=== PATIENT | male | born 1975 | race Caucasian/White ===

== ENCOUNTER 2023-11-26 14:19 | Emergency (ER) | payer SELFPAY ==
--- NOTE | 2023-11-26 16:33 | ED.SKININJ ---
HPI-Injury
General
Chief Complaint: Bite
Source: patient
Exam Limitations: none
Time Seen by Provider: 11/26/23 15:37
Nursing documentation reviewed up to this point in time: agreed with
Travel History
Have you had any contact with someone who has COVID-19?: No
Do you have any symptoms of coronavirus? Fever > 100 degrees, chills, cough, shortness of breath, sore throat, loss of taste or smell, muscle aches, or headache?: No
History of Present Illness-Injury
Is this injury a work related problem?: Yes
Is pt an associate of [facility]?: No
Initial Injury comments:
Patient states he felt something sting his neck. Did not see insect. COmplains of pain and itching to right parietal scalp behind right ear, left shoulder. Incident occurred just PT
Past History
Past History
ED Past Medical History: Other (Crohn's disease)
ED Past Surgical History: Other (Bowel resection)
Social History
Tobacco: Non-smoker
Alcohol: None
Drug: None
Personal:
Living: with family
Employment: Employed
Review of Systems
Review of Systems
Allergies reviewed?: Yes
All Other Systems: ROS reviewed and negative except as documented in HPI and ROS
Constitutional: Reports no symptoms
EENT: Reports no symptoms
Respiratory: Reports no symptoms
Cardiac: Reports no symptoms
ABD/GI: Reports no symptoms
: Reports no symptoms
Musculoskeletal: Reports no symptoms
Skin: Reports other (insect bite left parietal scalp behind left ear and right shoulder)
Neurological: Reports no symptoms
Psychiatric: Reports no symptoms
Skin Exam
Bite
Right Shoulder:
Type: insect/spider
Surrounding area around bite has: area of erythema/swelling
Distal skin color and temperature: normal-warm & good color
Normal distal neurovascular exam: Yes
Left Parietal:
Type: insect/spider
Surrounding area around bite has: area of erythema/swelling
Distal skin color and temperature: normal-warm & good color
Normal distal neurovascular exam: Yes
Phy Exam
General Physical Exam
General Presentation: well appearing and no apparent distress
General age: appears stated age
General Skin: warm and dry
General Habitus: normal
General Mental: alert
Cardiovascular Exam
Cardiovascular Exam: regular rate/rhythm and no edema
Pulmonary Exam
Pulmonary Exam: lungs clear and no respiratory distress
Musculoskeletal Exam
Musculoskeletal Exam: full ROM and neuro vasc intact
Skin Exam
Skin Exam: normal color, warm/dry and no rash
Psychiatric Exam
Psychiatric Exam: normal mood/affect
Course
Orders/Labs/Results
Orders:
Orders
11/26/23 16:31
Diphenhydramine [Benadryl] 50 mg PO NOW STA
Vital Signs
Initial and Last Documented VS:
Initial Vital Signs
Temp
98.0 F
11/26/23 14:33
Last Documented Vital Signs
Temp
98.5 F
11/26/23 16:42
*Critical Care Note
Total Time (30-74mins, 75-104mins- exclusive of procedures): Not Applicable
ED Attending Note
-
Portions of this chart may have been created with voice recognition software.� Occasional wrong word or��sound alike� substitutions may have occurred due to the inherent limitations of voice recognition software.
Discharge Plan
Departure
Patient Disposition: Home (Routine Discharge)
Date of Disposition: 11/26/23
Time of Disposition: 16:33
Patient with high blood pressure during this ER visit?: No
Condition: Good
Covid-19: Not Applicable
Discharge Problem:
Insect bite
Instructions: Diphenhydramine (Systemic), Insect Bites and Stings (DC), Using Cold for Pain
Prescriptions:
No Action
aspirin 81 mg Tablet,Delayed Release (Dr/Ec)
81 mg PO DAILY
budesonide 3 mg capsule,delayed,extend.release
3 mg PO DAILY Qty: 30 0RF
mesalamine 800 mg tablet,delayed release (DR/EC)
1,600 mg PO TID Qty: 90 0RF
acetaminophen [Pain Relief ES (acetaminophen)] 500 mg Tablet
1,000 mg PO TID Qty: 30 0RF
oxycodone 5 mg Tablet
5 mg PO Q4HPRN PRN (Reason: mod sev pain) 15 Days Qty: 15 0RF
prednisone 10 mg Tablet
See Rx Instructions .ROUTE .COMPLEX Qty: 20 0RF
Rx Instructions:
Take By Mouth:
40 mg daily x2 days, 30 mg daily x2 days,
20 mg daily x2 days, 10 mg daily x2 days.
doxycycline hyclate 100 mg capsule
100 mg PO BID Qty: 14 0RF
Referrals:
NONE,* [Family Provider] -
Activity Restrictions/Additional Instructions:
Return to the emergency department for any difficulty breathing or swallowing. Continue Benadryl 25-50mg every 4-6 hours as needed for itching.
Interventions
Interventions:
*Risk Screen - Suicide Last Done: 11/26/23 16:26
*General Assessment Last Done: 11/26/23 16:26
*Neglect/Abuse Screening Last Done: 11/26/23 16:26
*ED COVID-19 Vaccine History Last Done: 11/26/23 14:33
*Nursing Disposition Last Done: 11/26/23 16:42
ED-Skin Assessment Last Done: 11/26/23 16:26
Discharge Date and Time
Discharge Date/Time: 11/26/23 16:43
[2023-11-26] MEDS: BENADRYL 50 MG PO (16:40)
== END 2023-11-26 16:43 | disposition home or self-care (01) ==
LOC: EMR 14:19
PROVIDERS: EMERGENCY PHYSICIAN Emergency Medicine
DX: H92.01 Otalgia, right ear (principal); M25.512 Pain in left shoulder; R22.31 Localized swelling, mass and lump, right upper limb; L29.9 Pruritus, unspecified; W57.XXXA Bitten or stung by nonvenomous insect and other nonvenomous arthropods, initial encounter; Y93.89 Activity, other specified; Y92.89 Other specified places as the place of occurrence of the external cause; Y99.0 Civilian activity done for income or pay; K50.90 Crohn's disease, unspecified, without complications; Z79.82 Long term (current) use of aspirin; Z98.0 Intestinal bypass and anastomosis status; Z88.1 Allergy status to other antibiotic agents
CPT/HCPCS: 99283

== ENCOUNTER 2024-11-20 20:36 | Emergency (ER) | payer BC, SELFPAY ==
[2024-11-20 20:42] VITALS: BP 120/94
--- NOTE | 2024-11-20 20:46 | ED.GENMED ---
ED Provider Triage
<Alexandre Choi PA-C - Last Filed: 11/20/24 20:47>
-
Patient seen by provider in Triage?: Seen in Triage
Attestation: A medical screening examination has been initiated by a qualified medical provider. Based on the assessment performed at this time, it has been determined that an emergent medical condition may exist and the patient has been informed
that further medical evaluation and possible additional diagnostic testing may be needed.
HPI: 49-year-old male [place] speaking only with history of Crohn's on mesalamine presents with 2 weeks worth of cough nausea diarrhea with shortness of breath and fatigue. He had a fever at the onset of the illness. His symptoms are not going
away. He has been trying [id number] medicines without relief.
Vital signs are stable through triage. Will check labs including COVID flu chest x-ray EKG
GENERAL: Alert , in no apparent distress
EYE: No visual abnormalities.
NECK: Trachea midline
ENT: No visible abnormalities.
LUNGS: No acute respiratory distress
NEUROLOGICAL: Alert and oriented
SKIN: Skin intact. No visible changes.
MUSCULOSKELETAL: Moving extremities normally
PSYCH: Normal and appropriate interaction.
This is a medical evaluation conducted in person to initiate diagnostic evaluation and provide initial therapeutics. Please see further documentation by the treating clinician.
History of Present Illness
<Alexandre Choi PA-C - Last Filed: 11/20/24 20:47>
General
Chief Complaint: Cold/Flu/URI Symptoms
Time Seen by Provider: 11/20/24 21:30
<Margareth Carlos NP - Last Filed: 11/20/24 22:54>
General
Source: patient
Exam Limitations: none
Nursing documentation reviewed up to this point in time: agreed with
History of Present Illness
History of Present Illness:
Patient to ED with complaint of SOB, Cough, ear pain x2 weeks. Denies fever/chills. Reports intermittent genrealized abd. discomfort. He has a history of crohns and this is typical for him. Brought self to ED for eval.
Past History
<Alexandre Choi PA-C - Last Filed: 11/20/24 20:47>
Past History
ED Past Medical History: Other (Crohn's disease)
ED Past Surgical History: Other (Bowel resection)
Social History
Tobacco: Non-smoker
Alcohol: None
Drug: None
Personal:
Living: with family
Employment: Employed
Review of Systems
<Margareth Carlos NP - Last Filed: 11/20/24 22:54>
Review of Systems
Allergies reviewed?: Yes
All Other Systems: ROS reviewed and negative except as documented in HPI and ROS
Constitutional: Reports no symptoms
EENT: Reports other (ear pain)
Respiratory: Reports cough and trouble breathing
Cardiac: Reports no symptoms
ABD/GI: Reports diarrhea (intermittent episodes. Hx crohns)
: Reports no symptoms
Musculoskeletal: Reports no symptoms
Skin: Reports no symptoms
Neurological: Reports no symptoms
Psychiatric: Reports no symptoms
Phy Exam
<Margareth Carlos NP - Last Filed: 11/20/24 22:54>
General Physical Exam
General Presentation: well appearing and no apparent distress
General age: appears stated age
General Skin: warm and dry
General Habitus: normal
General Mental: alert
General Hydration: appears well hydrated
ENT Exam
ENT Exam: EOMI, TM's normal, neck supple and swallowing well
Cardiovascular Exam
Cardiovascular Exam: regular rate/rhythm and no edema
Pulmonary Exam
Pulmonary Exam: lungs clear, no respiratory distress and chest non tender
Gastrointestinal Exam
Gastrointestinal Exam: normal bowel sounds, soft, no organomegaly, non distended and no cva tenderness
Palpation: generalized: Minimal tenderness
Musculoskeletal Exam
Musculoskeletal Exam: full ROM and neuro vasc intact
Skin Exam
Skin Exam: normal color, warm/dry and no rash
Psychiatric Exam
Psychiatric Exam: normal mood/affect
Course
<Alexandre Choi PA-C - Last Filed: 11/20/24 20:47>
Orders/Labs/Results
Orders:
Orders
11/20/24 20:43
CR Chest - 2 Views Urgent
Comment:
Reason For Exam: cough, sob
11/20/24 20:44
Electrocardiogram (*1) Urgent
Reason for Study: Chest Pain
EKG- Treatment ONCE
11/20/24 20:59
COVID-19 Antigen Urgent
Source: Nasal Swab
Complete Blood Count/With Diff Urgent
Comprehensive Metabolic Panel Urgent
Lipase Urgent
Influenza A+B Rapid Molecular Urgent
ENOCH Source: Nasal Swab
Specimen Description:
Abnormal Lab Results
11/20/24
20:59
Absolute Monos (auto) 0.7 H 10^3/uL
(0.1-0.6)
Chloride 97 L mmol/L
(98-107)
11/20/24 20:59
11/20/24 20:59
Vital Signs
Initial and Last Documented VS:
Initial Vital Signs
Temp Pulse Resp BP Pulse Ox
98.2 F 105 18 120/94 98
11/20/24 20:42 11/20/24 20:42 11/20/24 20:42 11/20/24 20:42 11/20/24 20:42
Last Documented Vital Signs
Temp Pulse Resp BP Pulse Ox
98.2 F 105 18 120/94 98
11/20/24 20:42 11/20/24 20:42 11/20/24 20:42 11/20/24 20:42 11/20/24 21:41
<Margareth Carlos NP - Last Filed: 11/20/24 22:54>
Orders/Labs/Results
Orders:
Orders
11/20/24 20:43
CR Chest - 2 Views Urgent
Comment:
Reason For Exam: cough, sob
11/20/24 20:44
Electrocardiogram (*1) Urgent
Reason for Study: Chest Pain
EKG- Treatment ONCE
11/20/24 20:59
COVID-19 Antigen Urgent
Source: Nasal Swab
Complete Blood Count/With Diff Urgent
Comprehensive Metabolic Panel Urgent
Lipase Urgent
Influenza A+B Rapid Molecular Urgent
ENOCH Source: Nasal Swab
Specimen Description:
Abnormal Lab Results
11/20/24
20:59
Absolute Monos (auto) 0.7 H 10^3/uL
(0.1-0.6)
Chloride 97 L mmol/L
(98-107)
11/20/24 20:59
11/20/24 20:59
Vital Signs
Initial and Last Documented VS:
Initial Vital Signs
Temp Pulse Resp BP Pulse Ox
98.2 F 105 18 120/94 98
11/20/24 20:42 11/20/24 20:42 11/20/24 20:42 11/20/24 20:42 11/20/24 20:42
Last Documented Vital Signs
Temp Pulse Resp BP Pulse Ox
98.2 F 105 18 120/94 98
11/20/24 20:42 11/20/24 20:42 11/20/24 20:42 11/20/24 20:42 11/20/24 21:41
<Margareth Carlos NP - Last Filed: 11/20/24 22:54>
*Radiology
Radiology exam reviewed: radiology read reviewed
*Pulse Oximetry
Patient hypoxic: no
ED Attending Note
<Alexandre Choi PA-C - Last Filed: 11/20/24 20:47>
-
Portions of this chart may have been created with voice recognition software.� Occasional wrong word or��sound alike� substitutions may have occurred due to the inherent limitations of voice recognition software.
Discharge Plan
Departure
Patient Disposition: Home (Routine Discharge)
Date of Disposition: 11/20/24
Time of Disposition: 22:18
Patient with high blood pressure during this ER visit?: No
Condition: Good
Covid-19: Not Applicable
Discharge Problem:
URI, acute
Instructions: Viral Syndrome (DC)
Prescriptions:
New
prednisone 10 mg Tablet
See Rx Instructions .ROUTE .COMPLEX Qty: 45 0RF
Rx Instructions:
Take By Mouth:
50 mg daily x3 days, 40 mg daily x3 days,
30 mg daily x3 days, 20 mg daily x3 days,
10 mg daily x3 days
No Action
aspirin 81 mg Tablet,Delayed Release (Dr/Ec)
81 mg PO DAILY
budesonide 3 mg capsule,delayed,extend.release
3 mg PO DAILY Qty: 30 0RF
mesalamine 800 mg tablet,delayed release (DR/EC)
1,600 mg PO TID Qty: 90 0RF
acetaminophen [Pain Relief ES (acetaminophen)] 500 mg Tablet
1,000 mg PO TID Qty: 30 0RF
oxycodone 5 mg Tablet
5 mg PO Q4HPRN PRN (Reason: mod sev pain) 15 Days Qty: 15 0RF
prednisone 10 mg Tablet
See Rx Instructions .ROUTE .COMPLEX Qty: 20 0RF
Rx Instructions:
Take By Mouth:
40 mg daily x2 days, 30 mg daily x2 days,
20 mg daily x2 days, 10 mg daily x2 days.
doxycycline hyclate 100 mg capsule
100 mg PO BID Qty: 14 0RF
Referrals:
[facility] [Outside]
Steve Teran MD [Active] - Next open appointment
Activity Restrictions/Additional Instructions:
REturn to the emergency department immediately for any changes in/worsening of your symptoms.
Interventions
Interventions:
*Risk Screen - Suicide Last Done: 11/20/24 20:42
*General Assessment Last Done: 11/20/24 20:42
*Neglect/Abuse Screening Last Done: 11/20/24 20:42
*ED COVID-19 Vaccine History Last Done: 11/20/24 21:41
ED- Cardiac Assessment Last Done: 11/20/24 21:41
ED- Pulmonary Assessment Last Done: 11/20/24 21:41
Discharge Date and Time
Print Language: LAO
[2024-11-20 21:12] LABS: % Basophils 0.9 % (0-2); % Eosinophils 1.9 % (0-6); % Immature Granulocytes 0.3 % (0-0.5); % Lymphocytes 26.9 % (20.5-51.1); Absolute Basophils 0.1 10^3/uL (0-0.2); Absolute Eosinophils 0.1 10^3/uL (0-0.7); Absolute Monocytes 0.7 10^3/uL (0.1-0.6); Absolute Neutrophils 4.6 10^3/uL (1.4-6.5); Hematocrit 41.4 % (39.0-52.0); Hemoglobin 14.5 g/dL (13.0-18.0); Mean Corpuscular Hgb 29.8 pg (27.0-31.0); Mean Corpuscular Volume 85.2 fL (80.0-94.0); Nucleated Red Blood Cells % 0 % (-); Platelet Count 284 10^3/uL (130-400); Red Blood Cell Count 4.86 10^6/uL (4.70-6.10); Red Cell Dist. Width 12.5 % (11.5-14.5); White Blood Cell Count 7.5 10^3/uL (4.8-10.8)
[2024-11-20 21:22] LABS: COVID-19 Antigen Negative (Negative)
[2024-11-20 21:23] LABS: ALT (SGPT) 32 U/L (0-50); AST (SGOT) 33 U/L (17-59); Albumin 4.9 g/dl (3.5-5.0); Alkaline Phosphatase 91 U/L (38-126); Blood Urea Nitrogen 19 mg/dl (9-20); Calcium 9.7 mg/dl (8.4-10.2); Carbon Dioxide 29 mmol/L (22-30); Chloride 97 mmol/L (98-107); Glucose 92 mg/dl (70-99); Sodium 137 mmol/L (135-145); Total Bilirubin 1.1 mg/dl (0.2-1.3); Total Protein 7.6 g/dl (6.3-8.2); eGFR > 60.00
[2024-11-20 21:25] LABS: Lipase 119 U/L (23-300)
[2024-11-20 23:33] VITALS: BP 122/90
== END 2024-11-20 23:35 | disposition home or self-care (01) ==
LOC: EMR 20:36
PROVIDERS: Physician Assistant; EMERGENCY PHYSICIAN Emergency Medicine
DX: J06.9 Acute upper respiratory infection, unspecified (principal); Z11.52 Encounter for screening for COVID-19
CPT/HCPCS: 99285; 71046; 80053; 83690; 85025; 87502; 87811; 93005